=== PATIENT | female | born 1950 | race Caucasian/White ===

== ENCOUNTER → 2023-10-11 14:00 | Outpatient (REF) | payer MEDICARE, OTHER, SELFPAY | LOC: WDC 14:00 | PROVIDERS: ATTENDING PHYSICIAN Internal Medicine | DX: Z12.31 Encounter for screening mammogram for malignant neoplasm of breast (principal) | CPT/HCPCS: 77063; 77067 ==

== ENCOUNTER → 2024-04-21 11:30 | Outpatient (REF) | payer MEDICARE, OTHER, SELFPAY ==
[2024-04-21 16:23] LABS: Urine Albumin Trace (Neg - Trace); Urine Bilirubin Negative (Negative); Urine Character Clear (Clear); Urine Color Yellow; Urine Glucose Negative (Negative); Urine Ketone Negative (Negative); Urine Leukocyte Negative (Negative); Urine Nitrite Negative (Negative); Urine Occult Blood 3+ (Negative); Urine Specific Gravity 1.015 (<1.030); Urine Urobilinogen Negative (Neg - 1+)
[2024-04-21 16:46] LABS: Urine Mucus Few
[2024-04-21 16:47] LABS: Urine White Cell 0-2 /HPF (0-5)
== END ==
LOC: CLAB 11:30
PROVIDERS: ATTENDING PHYSICIAN Specialist
DX: N39.0 Urinary tract infection, site not specified (principal); R31.9 Hematuria, unspecified
CPT/HCPCS: 81003; 81015

== ENCOUNTER → 2024-10-13 14:02 | Outpatient (REF) | payer MEDICARE, OTHER, SELFPAY | LOC: WDC 14:02 | DX: Z12.31 Encounter for screening mammogram for malignant neoplasm of breast (principal) | CPT/HCPCS: 77063; 77067 ==